=== PATIENT | male | born 1990 | race Caucasian/White ===

== ENCOUNTER 2021-12-12 11:33 | Emergency (ER) | payer MEDICAID | END 2021-12-12 13:37 | disposition home or self-care (01) | LOC: JP.ED 11:33 | DX: L23.9 Allergic contact dermatitis, unspecified cause (principal); K21.9 Gastro-esophageal reflux disease without esophagitis; Z91.018 Allergy to other foods; Z88.2 Allergy status to sulfonamides | CPT/HCPCS: 99283 ==